=== PATIENT | female | born 1950 | race Caucasian/White ===

== ENCOUNTER 2024-01-19 11:36 | Emergency (ER) | payer MEDICARE, OTHER ==
[2024-01-19 12:04] LABS: BASOPHILS ABSOLUTE AUTO 0.01 10^3/uL (0.00-0.10); BASOPHILS PERCENT AUTO 0.2 % (0.0-1.0); EOSINOPHILS ABSOLUTE AUTO 0.06 10^3/uL (0.10-0.30); EOSINOPHILS PERCENT AUTO 1.4 % (1.0-3.0); HEMATOCRIT 20.8 % (37.0-47.0); IMMATURE GRAN ABSOLUTE AUTO 0.03 10^3/uL (0.00-0.50); IMMATURE GRAN PERCENT AUTO 0.7 % (0.0-5.0); LYMPHOCYTES ABSOLUTE AUTO 2.14 10^3/uL (1.00-4.00); LYMPHOCYTES PERCENT AUTO 51.4 % (20.0-40.0); MEAN CORPUSCULAR HEMOGLOBIN 46.3 pg (27.0-31.0); MEAN CORPUSCULAR HGB CONC 35.6 g/dL (32.0-36.0); MEAN PLATELET VOLUME 10.6 fL (7.4-10.4); MONOCYTES ABSOLUTE AUTO 0.24 10^3/uL (0.10-0.80); MONOCYTES PERCENT AUTO 5.8 % (2.0-8.0); NEUTROPHILS ABSOLUTE AUTO 1.68 10^3/uL (2.50-7.00); NEUTROPHILS PERCENT AUTO 40.5 % (50.0-70.0); PLATELET COUNT,PLT 151 10^3/uL (150-400); RED CELL DISTRIBUTION WIDTH 15.2 % (11.5-14.5); WHITE BLOOD CELL COUNT,WBC 4.16 10^3/uL (5.00-10.00)
[2024-01-19 12:09] LABS: HEMOGLOBIN 7.4 g/dL (12.0-16.0)
[2024-01-19] MEDS: Sodium Chloride 0.9% 1,000 ML IV ONE (12:16)
[2024-01-19 12:24] LABS: ALANINE AMINOTRANSFERASE,ALT 22 U/L (14-63); ALBUMIN 3.78 g/dL (3.40-5.00); ALKALINE PHOSPHATASE 60 U/L (46-116); ANION GAP 17.1 mmol/L (5-15); ASPARTATE AMNIOTRANSFERASE,AST 44 U/L (15-37); BILIRUBIN TOTAL 2.4 mg/dL (0.2-1.0); BLOOD UREA NITROGEN,BUN 11 mg/dL (7-18); CALCIUM 8.8 mg/dL (8.7-10.3); CARBON DIOXIDE,CO2 25.1 mmol/L (21.0-32.0); CHLORIDE,CL 106 mmol/L (98-107); CREATININE 0.66 mg/dL (0.51-1.17); GLUCOSE RANDOM 120 mg/dL (70-140); POTASSIUM,K 3.2 mmol/L (3.5-5.1); PROTEIN TOTAL,TP 6.7 g/dL (6.4-8.2); SODIUM,NA 145 mmol/L (136-145)
[2024-01-19 12:27] LABS: ESTIMATED GFR 94 mL/min (>=60)
[2024-01-19 13:25] LABS: APPEARANCE,URINE CLEAR (CLEAR); BACTERIA,URINE RARE /HPF (NONE TO FEW); BILIRUBIN,URINE NEGATIVE (NEGATIVE); COLOR,URINE YELLOW (YELLOW); EPITHELIAL CELLS,URINE RARE /LPF; GLUCOSE,URINE NEGATIVE (NEGATIVE); KETONES,URINE 15 mg/dL (NEGATIVE); LEUKOCYTE ESTERASE,URINE TRACE (NEGATIVE); NITRITE,URINE NEGATIVE (NEGATIVE); OCCULT BLOOD,URINE NEGATIVE (NEGATIVE); PROTEIN,URINE NEGATIVE (NEGATIVE); RBC,URINE 0-5 /HPF (0-5); UROBILINOGEN,URINE >=8.0 E.U./dL (0.2-1.0); WBC,URINE 0-5 /HPF (0-5)
[2024-01-19] MEDS: Sodium Chloride 0.9% 50 ML IV SCH (13:30)
[2024-01-19] MEDS: Iopamidol 755 Mg/ML 100 ML Bottle IV ONE (13:30)
== END 2024-01-19 15:10 ==
LOC: KA.ED 11:36
DX: R55 Syncope and collapse (principal); D64.9 Anemia, unspecified; K92.1 Melena; Z88.6 Allergy status to analgesic agent
CPT/HCPCS: 74022; 74177; 80053; 81001; 82270; 84484; 85025; 93005; 93010; 96360; 96361; 99284; 99285-25; J3490; J7030; Q9967